=== PATIENT | female | born 1990 | race Two or more races ===

== ENCOUNTER 2021-09-20 09:04 | Emergency (ER) | payer SELFPAY ==
[~2021-09-20] VITALS: Ht 160 cm; Wt 74.2 kg
[2021-09-20] MEDS ORDERED: IV NORMAL SALINE 1000ML BAG 1,000 ML IV ONE (09:30)
[2021-09-20 09:45] LABS: BACTERIA,URINE 0 /HPF (0-FEW); RBC,URINE 0 /HPF (0-2); WBC,URINE 0 /HPF (0-4)
--- NOTE | 2021-09-20 09:58 | PHYS DOC ---
Past Medical History Past Surgical History: No Surgical History Smoking Status: Never Smoker Alcohol Use: None Adult General Chief Complaint Chief Complaint: VAGINAL BLEEDING HPI HPI Patient is a 31 year old female presenting to the emergency department for evaluation of vaginal bleeding in early as she says she is G1 7 weeks and had intercourse 1 week ago when she started having spotting and that she had intercourse again yesterday and felt that she was still having spotting but felt lower abdominal cramping for the first time in addition to low back pain which concerned her and prompted her to come to the emergency department this morning. The vaginal bleeding continues to be light and she says the pain is not severe and she does not want anything for pain at this time. She says that she is having nausea with intermittent morning sickness but no diarrhea dysuria hematuria or vaginal discharge. She is in no acute distress with normal vital signs. Review of Systems Review of Systems Constitutional: Denies fever or chills [] Eyes: Denies change in visual acuity, redness, or eye pain [] HENT: Denies nasal congestion or sore throat [] Respiratory: Denies cough or shortness of breath [] Cardiovascular: No additional information not addressed in HPI [] GI: + abdominal pain, nausea, vomiting. No bloody stools or diarrhea [] : Denies dysuria or hematuria [] Musculoskeletal: Denies back pain or joint pain [] Integument: Denies rash or skin lesions [] Neurologic: Denies headache, focal weakness or sensory changes [] All other systems were reviewed and found to be within normal limits, except as documented in this note. Current Medications Current Medications Current Medications Medications (Trade) Dose Ordered Sig/[facility] Start Time Stop Time Status Last Admin Dose Admin Acetaminophen (Tylenol) 650 mg 1X ONCE 09/20/21 12:45 09/20/21 12:46 DC Sodium Chloride 1,000 ml @ 1,000 mls/hr 1X ONCE 09/20/21 09:30 09/20/21 10:29 DC 09/20/21 09:41 1,000 MLS/HR Allergies Allergies Allergies Coded Allergies Type Severity Reaction Last Updated Verified No Known Drug Allergies 09/20/21 No Physical Exam Physical Exam Constitutional: Well developed, well nourished, no acute distress, non-toxic appearance. [] HENT: Normocephalic, atraumatic, bilateral external ears normal, oropharynx moist, no oral exudates, nose normal. [] Eyes: PERRLA, EOMI, conjunctiva normal, no discharge. [] Neck: Normal range of motion, no tenderness, supple, no stridor. [] Cardiovascular:Heart rate regular rhythm, no murmur [] Lungs & Thorax: Bilateral breath sounds clear to auscultation [] Abdomen: Bowel sounds normal, soft, no tenderness, no masses, no pulsatile masses. [] Skin: Warm, dry, no erythema, no rash. [] Back: No tenderness, no CVA tenderness. [] Extremities: No tenderness, no cyanosis, no clubbing, ROM intact, no edema. [] Neurologic: Alert and oriented X 3, normal motor function, normal sensory function, no focal deficits noted. [] Current Patient Data Vital Signs Vital Signs Date Time Temp Pulse Resp B/P (MAP) Pulse Ox O2 Delivery O2 Flow Rate FiO2 09/20/21 12:41 78 18 121/60 (80) 98 Room Air 09/20/21 09:21 98.3 98.3 Lab Values Laboratory Tests Test 09/20/21 08:55 09/20/21 09:15 09/20/21 09:19 09/20/21 09:55 White Blood Count 5.6 x10^3/uL (4.0-11.0) Red Blood Count 4.95 x10^6/uL (3.50-5.40) Hemoglobin 11.3 g/dL (12.0-15.5) L Hematocrit 36.4 % (36.0-47.0) Mean Corpuscular Volume 74 fL (79-100) L Mean Corpuscular Hemoglobin 23 pg (25-35) L Mean Corpuscular Hemoglobin Concent 31 g/dL (31-37) Red Cell Distribution Width 16.5 % (11.5-14.5) H Platelet Count 280 x10^3/uL (140-400) Neutrophils (%) (Auto) 59 % (31-73) Lymphocytes (%) (Auto) 32 % (24-48) Monocytes (%) (Auto) 4 % (0-9) Eosinophils (%) (Auto) 4 % (0-3) H Basophils (%) (Auto) 1 % (0-3) Neutrophils # (Auto) 3.3 x10^3/uL (1.8-7.7) Lymphocytes # (Auto) 1.8 x10^3/uL (1.0-4.8) Monocytes # (Auto) 0.2 x10^3/uL (0.0-1.1) Eosinophils # (Auto) 0.2 x10^3/uL (0.0-0.7) Basophils # (Auto) 0.0 x10^3/uL (0.0-0.2) Platelet Estimate Adequate (ADEQUATE) Anisocytosis Slight Microcytosis Present Urine Collection Type Void Urine Color (Auto) Light yellow Urine Turbidity Clear Urine pH (Auto) 6.5 (<5.0-8.0) Urine Specific Farrell 1.011 (1.000-1.030) Urine Protein (Auto) Negative mg/dL (Negative) Urine Glucose (Auto)(UA) Negative mg/dL (Negative) Urine Ketones (Auto) Negative mg/dL (Negative) Urine Blood (Auto) Moderate (Negative) Urine Nitrite Negative (Negative) Urine Bilirubin (Auto) Negative (Negative) Urine Urobilinogen (Auto) Normal mg/dL (Normal) Urine Leukocyte Esterase (Auto) Negative (Negative) Urine RBC 0 /HPF (0-2) Urine WBC 0 /HPF (0-4) Urine Squamous Epithelial Cells Few /LPF Urine Bacteria 0 /HPF (0-FEW) POC Urine HCG, Qualitative Hcg positive (Negative) Maternal Serum HCG Beta Subunit 3328 mIU/mL (0-5) H Sodium Level 142 mmol/L (136-145) Potassium Level 4.3 mmol/L (3.5-5.1) Chloride Level 106 mmol/L (98-107) Carbon Dioxide Level 26 mmol/L (21-32) Anion Gap 10 (6-14) Blood Urea Nitrogen 6 mg/dL (7-20) L Creatinine 0.6 mg/dL (0.6-1.0) Estimated GFR (Cockcroft-Gault) 117.4 BUN/Creatinine Ratio 10 (6-20) Glucose Level 85 mg/dL (70-99) Calcium Level 8.8 mg/dL (8.5-10.1) Total Bilirubin 0.3 mg/dL (0.2-1.0) Aspartate Amino Transferase (AST) 9 U/L (15-37) L Alanine Aminotransferase (ALT) 18 U/L (14-59) Alkaline Phosphatase 53 U/L (46-116) Total Protein 7.3 g/dL (6.4-8.2) Albumin 3.8 g/dL (3.4-5.0) Albumin/Globulin Ratio 1.1 (1.0-1.7) Laboratory Tests 09/20/21 08:55 Laboratory Tests 09/20/21 09:55 EKG EKG [] Radiology/Procedures Radiology/Procedures [] Course & Med Decision Making Course & Med Decision Making Patient has no abdominal tenderness to palpation and her vaginal bleeding is light at this time. I will check labs including type and screen and hCG quant in addition to a pelvic ultrasound and reassess. Patient says she does not want anything for pain or nausea at this time. Patient has a hCG in the 3000 but on ultrasound there is no definitive IUP with heart tones noted but no adnexal mass concerning for ectopic . Patient continues to appear well with normal vital signs and benign repeat abdominal exam. I told patient that she will need repeat hCG testing within 2 to 3 days to trend her hCG to see if is going up or down she says she does not have an OB at this time 12 give her our OBs call information. Patient told to come back to emergency department with worsening pain fevers vomiting or other general concerns. Patient aware and agreeable with plan and verbalized understanding of above instructions. Dragon Disclaimer Dragon Disclaimer This electronic medical record was generated, in whole or in part, using a voice recognition dictation system. Departure Departure Impression: Primary Impression: Threatened miscarriage Disposition: HOME / SELF CARE / HOMELESS Condition: STABLE Referrals: IDANIA ELLIS MD Patient Instructions: Threatened Miscarriage Additional Instructions: [facility] [place] = [id number]. Follow up with OB for repeat testing and treatment. Thank you! ARNULFO SALEH DO Sep 20, 2021 09:58
[2021-09-20 10:32] LABS: BASO % 1 % (0-3); EOS # 0.2 x10^3/uL (0.0-0.7); EOS % 4 % (0-3); HEMATOCRIT 36.4 % (36.0-47.0); HEMOGLOBIN 11.3 g/dL (12.0-15.5); LYMPH # 1.8 x10^3/uL (1.0-4.8); LYMPH % 32 % (24-48); MEAN CORPUSCULAR HEMOGLOBIN 23 pg (25-35); MEAN CORPUSCULAR HGB CONC 31 g/dL (31-37); MEAN CORPUSCULAR VOLUME 74 fL (79-100); MONO # 0.2 x10^3/uL (0.0-1.1); MONO % 4 % (0-9); NEUT # 3.3 x10^3/uL (1.8-7.7); NEUT % 59 % (31-73); PLATELET COUNT 280 x10^3/uL (140-400); RED BLOOD COUNT 4.95 x10^6/uL (3.50-5.40); RED CELL DISTRIBUTION WIDTH 16.5 % (11.5-14.5); WHITE BLOOD COUNT 5.6 x10^3/uL (4.0-11.0)
[2021-09-20 11:08] LABS: ALBUMIN 3.8 g/dL (3.4-5.0); ALBUMIN/GLOBULIN RATIO 1.1 (1.0-1.7); CALCIUM 8.8 mg/dL (8.5-10.1); CREATININE 0.6 mg/dL (0.6-1.0); GFR 117.4; POTASSIUM 4.3 mmol/L (3.5-5.1); TOTAL BILIRUBIN 0.3 mg/dL (0.2-1.0); TOTAL PROTEIN 7.3 g/dL (6.4-8.2)
[2021-09-20 11:56] LABS: ANISOCYTOSIS SLIGHT; MICROCYTOSIS PRESENT; PLT ESTIMATE ADEQUATE (ADEQUATE)
[2021-09-20] MEDS ORDERED: ACETAMINOPHEN 650 MG/20.3 ML SOLUTION. PEG ONE (12:45)
--- NOTE | 2021-09-20 12:52 | RAD ---
US OB <14 WKS +TV History: Reason: vaginal bleeding at 7 weeks preg / Spl. Instructions: / History: Comparison: None. Technique: Grayscale and color Doppler imaging of the pelvis was performed using transabdominal techn ique. Findings: The uterus measures 9.7 x 5.0 x 4.7 cm. Intrauterine gestational sac within the lower uterine segment measures 1.37 cm. No yolk sac or pole is identified. Estimated gestational age based on gestational sac size 6 weeks 2 days. Right ovary measures 3.6 x 1.8 x 2.2 cm. Left ovary measures 3.1 x 2.0 x 2.1 cm. Normal Doppler flow to the ovaries bilaterally. No adnexal masses are seen. IMPRESSION: 1. Gestational sac within the lower uterine segment. No pole. Findings may relate to early pre gnancy although failed early is possible. Recommend short-term ultrasound follow-up and ser ial beta-hCG testing. Electronically signed by: Adam Barreto DO (09/20/2021 12:49 PM) [id number]
[2021-09-20 13:20] VITALS: BP 112/59
== END 2021-09-20 13:47 | disposition home or self-care (01) ==
LOC: ER 09:04
DX: O20.0 Threatened abortion (principal); Z3A.01 Less than 8 weeks gestation of pregnancy
CPT/HCPCS: 36415; 76801; 76817; 80053; 81001; 81025; 84702; 85025; 86850; 86900; 86901; 96360; 99285; J7030

== ENCOUNTER → 2021-09-23 | Outpatient (CLI) | payer SELFPAY ==
[2021-09-20 13:20] VITALS: BP 112/59
== END ==
LOC: LAB 11:31
PROVIDERS: ATTEND Obstetrics & Gynecology
DX: O03.9 Complete or unspecified spontaneous abortion without complication (principal)
CPT/HCPCS: 36415; 84702